=== PATIENT | female | born 1955 | race African-American/Black ===

== ENCOUNTER 2021-09-10 14:07 | Inpatient (IN) | payer MEDICAID ==
[~2021-09-10] VITALS: Ht 154.9 cm; Wt 97.5 kg
[2021-09-10] MEDS ORDERED: KETOROLAC 30MG/ML VIAL IM STA (15:41)
[2021-09-10] MEDS ORDERED: HYDROCODONE/ACETAMINOPHEN 5/325MG TABLET PO STA (16:18)
[2021-09-10] MEDS ORDERED: KETOROLAC 30MG/ML VIAL IM NR (19:00)
[2021-09-10] MEDS ORDERED: HYDROCODONE/ACETAMINOPHEN 5/325MG TABLET PO NR (19:00)
[2021-09-10] MEDS ORDERED: LIDOCAINE 5% PATCH TOP SCH (19:30)
[2021-09-10 20:44] LABS: BASOPHILS % 0.9 % (0.0-2.0); EOSINOPHILS % 1.6 % (0.0-5.0); HEMATOCRIT. 36.3 % (36.0-48.0); HEMOGLOBIN. 11.9 g/dL (12.0-16.0); LYMPHOCYTES % 16.5 % (20.0-50.0); MEAN CORPUSCULAR HEMOGLOBIN 27.1 pg (28.0-32.0); MEAN CORPUSCULAR VOLUME 82.3 fL (81.0-99.0); MEAN PLATELET VOLUME 8.8 fl (7.4-10.4); MONOCYTES % 4.2 % (2.0-8.0); NEUTROPHILS % 76.8 % (40.0-76.0); PLATELET 257 x1000/uL (130-400); RED BLOOD CELL COUNT 4.41 mill/uL (4.2-5.4); RED CELL DISTRIBUTION WIDTH 13.5 % (11.6-14.6)
[2021-09-10 20:54] LABS: CHLORIDE 104 mEq/L (98-107)
[2021-09-10] MEDS ORDERED: IOHEXOL-300 100 ML BOTTLE ONE (22:32)
[2021-09-11 08:00] VITALS: BP 154/86
[2021-09-11] MEDS ORDERED: CLONIDINE 0.1MG TABLET PO NR (08:30)
[2021-09-11 09:34] VITALS: BP 154/86
[2021-09-11 12:00] VITALS: BP 122/66
[2021-09-11] MEDS ORDERED: ACETAMINOPHEN 325MG TABLET PO PRN ×2 (13:00)
[2021-09-11] MEDS ORDERED: CLONIDINE 0.1MG TABLET PO PRN (13:00)
[2021-09-11] MEDS ORDERED: DOCUSATE SODIUM 100MG CAPSULE PO PRN (13:00)
[2021-09-11] MEDS ORDERED: ONDANSETRON HCL 4MG/2ML INJ IV PRN (13:00)
[2021-09-11] MEDS ORDERED: MAGNESIUM/ALUMINUM HYDROXIDE/SIMETHICONE 30ML UDC PO PRN (13:00)
[2021-09-11] MEDS ORDERED: NALOXONE HCL 0.4MG/ML VIAL IV PRN (13:30)
[2021-09-11] MEDS: SODIUM CHLORIDE 0.9% INJ 3ML FLUSH IVF SCH ×2 (14:00→20:39)
[2021-09-11 16:00] VITALS: BP 159/76
[2021-09-11] MEDS: ENOXAPARIN 40MG/0.4ML SYR SUBCUT SCH (20:39)
[2021-09-11] MEDS: OXYCODONE HCL/ACETAMINOPHEN 5/325MG TABLET PO PRN (20:40)
[2021-09-12] VITALS: BP 96/49
[2021-09-12] MEDS: SODIUM CHLORIDE 0.9% INJ 3ML FLUSH IVF SCH ×3 (06:11→20:50)
[2021-09-12] MEDS: OMEPRAZOLE 20MG CAPSULE EXTENDED RELEASE PO SCH (06:48)
[2021-09-12 08:00] VITALS: BP 125/58
[2021-09-12] MEDS: OXYCODONE HCL/ACETAMINOPHEN 5/325MG TABLET PO PRN ×2 (08:58→20:46)
[2021-09-12] MEDS: ENOXAPARIN 40MG/0.4ML SYR SUBCUT SCH ×2 (08:59→20:47)
[2021-09-12] MEDS: TRIAMTERENE/HCTZ 37.5/25MG TABLET PO SCH (08:59)
[2021-09-12 12:00] VITALS: BP 134/57
[2021-09-12 16:00] VITALS: BP 128/59
[2021-09-12 20:00] VITALS: BP 151/79
[2021-09-13] VITALS: BP 126/76
[2021-09-13] MEDS: OMEPRAZOLE 20MG CAPSULE EXTENDED RELEASE PO SCH (06:56)
[2021-09-13] MEDS: SODIUM CHLORIDE 0.9% INJ 3ML FLUSH IVF SCH (06:56)
[2021-09-13] MEDS: ENOXAPARIN 40MG/0.4ML SYR SUBCUT SCH (09:10)
[2021-09-13] MEDS: TRIAMTERENE/HCTZ 37.5/25MG TABLET PO SCH (09:13)
[2021-09-13] MEDS ORDERED: AMLO5TAB4 MT (11:54)
[2021-09-13] MEDS ORDERED: TRAM50TA3 MT (11:54)
[2021-09-13] MEDS ORDERED: DOCU-150 PO (11:54)
[2021-09-13 12:59] VITALS: BP 140/92
== END 2021-09-13 14:04 | disposition home or self-care (01) | DRG 254 ==
LOC: ER 14:31 → MICUSO 09-11 01:02 → EDBEDREQTM 09-11 01:11 → EDBEDREQ 09-11 01:11 → EDBEDREQDT 09-11 01:11 → 6EST 09-11 09:31
PROVIDERS: ADMIT Internal Medicine; ATTEND Internal Medicine
DX: K43.9 Ventral hernia without obstruction or gangrene (principal); E66.9 Obesity, unspecified; I10 Essential (primary) hypertension; K21.9 Gastro-esophageal reflux disease without esophagitis; Z90.49 Acquired absence of other specified parts of digestive tract; Z68.41 Body mass index [BMI] 40.0-44.9, adult
CPT/HCPCS: 36415; 72100; 74177; 80053; 83605; 85025; 99285; J1650; J1885; Q9967

== ENCOUNTER 2022-12-21 14:51 | Emergency (ER) | payer MEDICARE, MEDICAID ==
[~2022-12-21] VITALS: Ht 154.9 cm; Wt 93.0 kg
[~2022-12-21 14:51] MED LIST: AMLO5TAB4 MT; DOCU-150 PO; TRAM50TA3 MT
[2022-12-21 14:58] VITALS: BP 185/98; PULSE 72; RESP 17; TEMP 98.8; O2SAT 100
[2022-12-21] MEDS ORDERED: DEXT15LI MT (16:41)
== END 2022-12-21 16:52 | disposition home or self-care (01) ==
LOC: ER 14:51
DX: J06.9 Acute upper respiratory infection, unspecified (principal); I10 Essential (primary) hypertension; Z98.51 Tubal ligation status; Z98.890 Other specified postprocedural states
CPT/HCPCS: 71045; 99283

== ENCOUNTER 2023-02-26 14:57 | Emergency (ER) | payer MEDICAID, MEDICARE ==
[~2023-02-26] VITALS: Ht 152.4 cm; Wt 88.0 kg
[~2023-02-26 14:57] MED LIST changes: +DEXT15LI MT
[2023-02-26 15:05] VITALS: TEMP 98; O2SAT 99
[2023-02-26 20:18] LABS: BASOPHILS % 0.8 % (0.0-2.0); EOSINOPHILS % 1.7 % (0.0-5.0); HEMATOCRIT. 43.4 % (36.0-48.0); HEMOGLOBIN. 14.1 g/dL (12.0-16.0); LYMPHOCYTES % 45.7 % (20.0-50.0); MEAN CORPUSCULAR HEMOGLOBIN 27.2 pg (28.0-32.0); MEAN CORPUSCULAR HGB CONC 32.6 g/dL (31.0-37.0); MEAN CORPUSCULAR VOLUME 83.4 fL (81.0-99.0); MEAN PLATELET VOLUME 8.6 fl (7.4-10.4); MONOCYTES % 13.2 % (2.0-8.0); NEUTROPHILS % 38.6 % (40.0-76.0); PLATELET 316 x1000/uL (130-400); RED CELL DISTRIBUTION WIDTH 13.4 % (11.6-14.6); WHITE BLOOD COUNT 6.4 x1000/uL (4.5-11.0)
[2023-02-26 20:33] LABS: ALANINE AMINOTRANSFERASE 7 IU/L (10-49); ALBUMIN 4.5 g/dL (3.2-4.8); ASPARTATE AMINOTRANSFERASE 23 IU/L (<34); BILIRUBIN TOTAL 0.4 mg/dL (0.1-1.0); CALCIUM 9.4 mg/dL (8.7-10.4); CARBON DIOXIDE 26 mEq/L (21-32); CHLORIDE 98 mEq/L (98-107); GLUCOSE 113 mg/dL (70-105); POTASSIUM 3.8 mEq/L (3.5-5.1); SODIUM 136 mEq/L (136-145); TROPONIN I HIGH SENSITIVITY 5 ng/L (3.0-34); UREA NITROGEN BLOOD 17 mg/dL (9-23)
[2023-02-26] MEDS ORDERED: P50 MT (21:30)
[2023-02-26] MEDS ORDERED: ALBU6.7H15 INH (21:30)
[2023-02-26] MEDS ORDERED: DEXT15LI MT (21:30)
[2023-02-26] MEDS ORDERED: AZIT250T MT (21:33)
[2023-02-26 23:01] VITALS: BP 137/71; PULSE 97; RESP 17
== END 2023-02-26 23:01 | disposition home or self-care (01) ==
LOC: ER 20:42
DX: J20.9 Acute bronchitis, unspecified (principal); I10 Essential (primary) hypertension; Z98.51 Tubal ligation status
CPT/HCPCS: 36415; 71045; 80053; 84484; 85025; 85379; 99284

== ENCOUNTER 2024-01-21 16:38 | Emergency (ER) | payer MEDICARE, MEDICAID ==
[~2024-01-21] VITALS: Ht 152.4 cm; Wt 88.0 kg
[~2024-01-21 16:38] MED LIST changes: +ALBU6.7H15 INH; -AMLO5TAB4 MT; +AMLO5TAB5 MT; +AZIT250T MT; -DEXT15LI MT; +DEXT15LI31 MT; -DOCU-150 PO; +DOCU-422 PO; +P50 MT
[2024-01-21 16:47] VITALS: BP 180/86; TEMP 98.3; O2SAT 100
[2024-01-21 16:51] VITALS: PULSE 100; RESP 16; O2SAT 100
[2024-01-21] MEDS ORDERED: AMLO5TAB5 MT (19:23)
[2024-01-21] MEDS ORDERED: DEXT15LI31 MT (19:23)
[2024-01-21] MEDS ORDERED: TRAM50TA3 MT (19:23)
[2024-01-21] MEDS ORDERED: AMOX600S39 MT (19:23)
[2024-01-21] MEDS ORDERED: TOPUD MT (19:29)
[2024-01-21] MEDS ORDERED: IBUP-1523 MT (19:29)
[2024-01-21] MEDS: HYDROCODONE/ACETAMINOPHEN 5/325MG TABLET PO ONE (20:01)
== END 2024-01-21 19:37 | disposition home or self-care (01) ==
LOC: ER 16:38
DX: J01.90 Acute sinusitis, unspecified (principal); I10 Essential (primary) hypertension; Z98.890 Other specified postprocedural states; Z79.899 Other long term (current) drug therapy
CPT/HCPCS: 99283